=== PATIENT | female | born 1950 | race Caucasian/White ===

== ENCOUNTER → 2022-09-05 12:37 | Outpatient (CLI) | payer MEDICARE, BC, SELFPAY ==
--- NOTE | 2022-09-05 13:03 | DI.RAD.S_ITS ---
PROCEDURE: XR ANKLE LT MIN 3V INDICATIONS: Left ankle TECHNIQUE: 3 views of the ankle were acquired. COMPARISON: None. FINDINGS: Bones: No fractures or dislocations. Ankle mortise is normally aligned. Osteoarthritic changes are noted throughout midfoot and hindfoot joints. No suspicious bony lesions. Well-defined plantar and dorsal calcaneal enthesophytes are seen. Soft tissues: No tibiotalar joint effusion. Achilles tendon appears normal. IMPRESSION: Moderate midfoot and hindfoot joint osteoarthritis. No acute fracture or dislocation. Ankle mortise is congruent. Calcaneal enthesophytes. Dictated by: Dwayne Mckee M.D. on 09/05/2022 at 15:38 Approved by: Dwayne Mckee M.D. on 09/05/2022 at 15:38
== END ==
PROVIDERS: PCP Nurse Practitioner Family; Referring Provider Nurse Practitioner Family; Visit Provider Nurse Practitioner Family
DX: S99.912A Unspecified injury of left ankle, initial encounter (principal); M19.072 Primary osteoarthritis, left ankle and foot; M77.32 Calcaneal spur, left foot; X58.XXXA Exposure to other specified factors, initial encounter
CPT/HCPCS: 73610

== ENCOUNTER → 2022-10-26 15:08 | Outpatient (CLI) | payer MEDICARE, BC, SELFPAY ==
--- NOTE | 2022-10-26 15:11 | DI.RAD.S_ITS ---
PROCEDURE: XR CHEST 2V INDICATIONS: Unknown cause of wt loss TECHNIQUE: 2 views of the chest were acquired. COMPARISON: None. FINDINGS: Surgical changes and devices: None. Lungs and pleura: Lungs are clear. No pleural effusions or pneumothorax. Mediastinum: Mediastinal contours are normal. Heart size is normal. Bones and chest wall: No suspicious bony abnormalities. Decreased osseous mineralization. Degenerative changes of the thoracic spine. Soft tissues appear unremarkable. IMPRESSION: No acute cardiopulmonary process. Dictated by: Emerson Ricci M.D. on 10/26/2022 at 16:04 Approved by: Emerson Ricci M.D. on 10/26/2022 at 16:05
[2022-10-26 15:58] LABS: Hematocrit 37.5 % (36-46); Mean Corpuscular HGB Conc 34.6 % (30-36); Mean Corpuscular Hemoglobin 31.8 PG (26-34); Mean Corpuscular Volume 91.9 fL (80-100); Platelet Count 243 X10^3/uL (150-400); Red Blood Cell Count 4.08 X10^6/uL (4.0-5.2); Red Cell Distribution Width 13.2 % (11.6-14.8); White Blood Cell Count 7.5 X10^3/uL (4.5-11.0)
[2022-10-26 16:57] LABS: Alanine Aminotransferase 21 IU/L (<35); Albumin 4.2 g/dL (3.5-5.0); Albumin Globulin Ratio 1.6 (1.0-2.8); Alkaline Phosphatase 85 U/L (38-126); Aspartate Aminotransferase 31 IU/L (14-36); BUN Creatinine Ratio 29.7 (6-22); Bilirubin Total 0.4 mg/dL (0.2-1.3); Blood Urea Nitrogen 19 mg/dL (7-17); Calcium 9.1 mg/dL (8.4-10.2); Carbon Dioxide 30 mmol/L (22-32); Chloride 102 mmol/L (98-107); Estimated Glomerular Filt Rate > 60 mL/min (>60); Globulin 2.6 g/dL (1.7-4.1); Glucose 99 mg/dL (80-110); HEMOLYSIS < 15 (0-50); Lipase 147 U/L (23-300); Potassium 3.9 mmol/L (3.4-5.1); Sodium 137 mmol/L (137-145); Total Protein 6.8 g/dL (6.3-8.2)
== END ==
PROVIDERS: Referring Provider Physician Assistant; Visit Provider Physician Assistant
DX: R63.4 Abnormal weight loss (principal)
CPT/HCPCS: 36415; 71046; 80053; 83690; 85027

== ENCOUNTER → 2022-12-17 10:28 | Outpatient (CLI) | payer MEDICARE, BC, SELFPAY ==
[2022-12-17 11:49] LABS: TSH w/ Reflex to FT4 1.06 uIU/mL (0.47-4.68)
== END ==
PROVIDERS: PCP Family Medicine; Referring Provider Family Medicine; Visit Provider Family Medicine
DX: E03.9 Hypothyroidism, unspecified (principal); I10 Essential (primary) hypertension
CPT/HCPCS: 36415; 84443

== ENCOUNTER → 2022-12-25 | Outpatient (CLI) | payer MEDICARE, BC, SELFPAY ==
--- NOTE | 2022-12-25 15:25 | DI.MG.S_ITS ---
BILATERAL DIGITAL SCREENING MAMMOGRAM 3D/2D WITH CAD: 12/25/2022 CLINICAL: Routine screening. Comparison is made to exams dated: 04/27/2022 mammogram and 07/20/2020 mammogram - outside facility. Both breasts are extremely dense, which lowers the sensitivity of mammography (category d />75% glandular tissue). Current study was also evaluated with a Computer Aided Detection (CAD) system. There are benign diffuse calcifications in both breasts. No significant masses, calcifications, or other findings are seen in either breast. There has been no significant interval change. IMPRESSION: BENIGN There is no mammographic evidence of malignancy. A 1 year screening mammogram is recommended. Based on the Tyrer Cuzick model (a risk assessment model) the patient's lifetime risk is 10.8% and her 10 year risk is 7.5%. According to the ACR, ACS, and NCCN guidelines, an annual breast MRI exam along with mammogram is recommended if the patient's lifetime risk is 20% or greater. This exam was interpreted at Station ID: [id number]. NOTE: For mammograms, a report in lay terms will be sent to the patient. Approximately 15% of breast malignancies will not be visualized mammographically. In the management of a palpable breast mass, a negative mammogram must not discourage biopsy of a clinically suspicious lesion. Electronically Signed By: Jadiel pérez/oralia:01/09/2023 12:48:47 letter sent: Normal Exam ACR BI-RADS Category 2: Benign Finding(s) 3342F
--- NOTE | 2022-12-25 15:28 | DI.CT.S_ITS ---
PROCEDURE: CT CHEST WO CON INDICATIONS: 30 lb wt loss, chronic cough TECHNIQUE: Noncontrast 5 mm thick sections acquired from the pulmonary apices to the posterior costophrenic angles. 1 mm lung window, 5 mm thick coronal and sagittal and 7 mm axial MIP reformats were then acquired. For radiation dose reduction, the following was used: automated exposure control, adjustment of mA and/or kV according to patient size. COMPARISON: [facility], CR, XR CHEST 2V, 10/26/2022, 15:25. FINDINGS: Image quality: Excellent. Lungs and pleura: No acute air space opacities. No suspicious pulmonary nodules are seen. A few scattered pulmonary granulomas can be seen. No pleural effusions or pneumothorax. Central and peripheral airways are patent and normal in caliber. Mediastinum: Heart size is normal. No pericardial effusion. No mediastinal adenopathy by size criteria. Calcified mediastinal lymph nodes can be seen. Thoracic aorta and central pulmonary arteries are normal in size. Esophagus is normal in caliber. No hiatal hernia. Bones and chest wall: No suspicious bony lesions. No vertebral body compression fractures. Age-appropriate bony degenerative changes are seen. Accentuated thoracic kyphosis is seen. No axillary or supraclavicular adenopathy by size criteria. Thyroid gland demonstrates no significant noncontrast abnormality. Abdomen: Calcified granulomas can be seen within the liver and spleen. The visualized portions of the upper abdominal structures are otherwise unremarkable for imaging technique. IMPRESSION: Clear lungs, without findings of masses or suspicious nodules. Additional findings: Prior granulomatous exposure. Dictated by: Pedro Shen M.D. on 12/25/2022 at 16:59 Approved by: Pedro Shen M.D. on 12/25/2022 at 17:01
== END ==
PROVIDERS: PCP Family Medicine; Referring Provider Family Medicine; Visit Provider Family Medicine
DX: Z12.31 Encounter for screening mammogram for malignant neoplasm of breast (principal); R63.4 Abnormal weight loss; R05.3 Chronic cough
CPT/HCPCS: 71250; 77063; 77067

== ENCOUNTER → 2023-01-04 12:51 | Outpatient (CLI) | payer MEDICARE, BC, SELFPAY ==
--- NOTE | 2023-01-04 12:53 | DI.CT.S_ITS ---
PROCEDURE: CT CHEST ABD PEL W CON INDICATIONS: lower lucinda abd pain, unintended wt loss TECHNIQUE: After the administration of intravenous contrast, 5 mm thick sections acquired from the lung apices to the symphysis. 5 mm coronal and sagittal reformats were performed, with additional 7 mm MIP reformats through the lungs. For radiation dose reduction, the following was used: automated exposure control, adjustment of mA and/or kV according to patient size. COMPARISON: None. FINDINGS: Image quality: Excellent. CHEST: Lungs and pleura: No acute airspace opacities. Mild focal pulmonary and pleural scarring at the right lung apex. No pleural effusions or pneumothorax. Central and peripheral airways appear patent and normal in caliber. Mediastinum: Heart size is normal. No pericardial effusion. No mediastinal or hilar adenopathy by size criteria. Thoracic aorta and central pulmonary arteries are normal in size. Esophagus is normal in caliber. No hiatal hernia. Chest wall: No axillary or supraclavicular adenopathy by size criteria. Thyroid gland appears normal . ABDOMEN: Solid organs: Liver is normal in size and enhancement. Gallbladder appears normal . Biliary system is non dilated. Pancreas enhances normally. Spleen is normal in size and enhancement. Old splenic punctate granulomatous calcifications are incidentally noted. No adrenal nodules. Kidneys demonstrate normal size and enhancement, without hydronephrosis. Peritoneum and bowel: Small bowel loops demonstrate normal wall thickness and caliber. No free fluid or air. There is generalized colonic obstipation on the right and left. Nodes and vessels: No retroperitoneal or mesenteric adenopathy by size criteria. Aorta and inferior vena cava are normal in size. Miscellaneous: No ventral hernias. PELVIS: Genitourinary: Bladder wall thickness is normal. The uterus and ovaries are poorly visualized due to apposition with the adjacent unopacified small bowel loops and stool-filled colon. Miscellaneous: No inguinal hernias or adenopathy. Generalized colonic obstipation can be seen within the pelvis on the right and left and extending posteriorly into the dorsal 3rd of the sigmoid colon, but quality of visualization of the colonic wall and mucosal surfaces in this area is very limited. Bones: No suspicious bony lesions. No vertebral body compression fractures. IMPRESSION: 1. As discussed above there is generalized colonic obstipation that appears to extend into the posterior 3rd of the sigmoid colon. In this area a mass lesion could be present and for this reason unless recently performed sigmoidoscopy/colonoscopy may be warranted. 2. The study was ordered without oral contrast and in this patient there is apposition of multiple unopacified small bowel loops and stool-filled colon within the lower abdomen and pelvis. The uterus and ovaries are poorly visualized and for this reason follow-up by pelvic ultrasound likely is warranted. Dictated by: Job Yarbrough M.D. on 01/04/2023 at 14:33 Approved by: Job Yarbrough M.D. on 01/04/2023 at 14:37
[2023-01-04 13:31] LABS: Estimated Glomerular Filt Rate > 60 mL/min (>60)
== END ==
PROVIDERS: Radiology Diagnostic Radiology; PCP Family Medicine; Referring Provider Family Medicine; Visit Provider Family Medicine
DX: K59.00 Constipation, unspecified (principal); R19.5 Other fecal abnormalities; R63.4 Abnormal weight loss
CPT/HCPCS: 36415; 71260; 74177; 82565; Q9967

== ENCOUNTER → 2023-01-15 09:47 | Outpatient (CLI) | payer MEDICARE, BC, SELFPAY ==
--- NOTE | 2023-01-15 09:48 | DI.US.S_ITS ---
PROCEDURE: US PELVIC COMPLETE INDICATIONS: WEIGHT LOSS TECHNIQUE: Real-time scanning was performed of the pelvic organs, with image documentation. Additional endovaginal scanning was necessary due to incomplete visualization of the adnexal and endometrial structures by transabdominal scanning. COMPARISON: None. FINDINGS: Uterus: Uterus is anteverted and normal in size at 5.3 x 2.5 x 3.7 cm. The myometrium is heterogeneous. The endometrium measures 4 mm combined thickness. There is a right posterior intramural focus measuring 11 x 9 x 11 mm. A similar left posterior intramural focus is present measuring 10 x 10 x 11 mm and a left anterior intramural focus measuring 9 x 8 x 8 mm. Ovaries: The right ovary measures 2.0 x 0.9 x 1.4 cm, with a calculated ovarian volume of 1.4 cc. The left ovary measures 2.0 x 1.4 x 1.1 cm, with a calculated ovarian volume of 1.6 cc. The ovaries have a normal sonographic appearance. Less than 12 follicles can be seen in each ovary. No adnexal masses are seen. Other: No pathologic free abdominal or pelvic fluid. IMPRESSION: Multiple fibroids. We strive to produce accurate, complete, and clear reports of imaging services. To assist us in improving patient care, this report was composed using standard report templates and voice recognition software. Therefore, it may contain abnormal punctuation, insertions and/or omissions. Occasional wrong-word or sound-alike substitutions may occur. Though we review the report and make efforts to correct it, we do recommend that the report be read carefully in proper context to recognize any text inaccuracies. Dictated by: Magi Blackwood M.D. on 01/15/2023 at 13:33 Approved by: Magi Blackwood M.D. on 01/15/2023 at 13:37
== END ==
PROVIDERS: PCP Family Medicine; Referring Provider Family Medicine; Visit Provider Family Medicine
DX: R63.4 Abnormal weight loss (principal); D25.1 Intramural leiomyoma of uterus
CPT/HCPCS: 76830; 76856; 93975

== ENCOUNTER 2023-04-29 06:38 | Day surgery (SDC) | payer MEDICARE, BC, SELFPAY ==
--- NOTE | 2023-04-29 | PATH_ITS ---
[facility] Accession Number: [id number] No. of containers..01 Tissue . 01 Material submitted: . rectum - RECTAL POLYP . 01 Diagnosis: Colon, rectum, polyp biopsy: - Granulation tissue/inflammatory polyp - Negative for intestinal mucosa. - Negative for carcinoma. - See comment. -- Comment: Microscopic examination revealed granulation tissue with dense inflammatory cells (neutrophils, lymphocytes, and plasma cells), no epithelial cells are seen, no viral cytopathologic changes are seen. Immunohistochemical stains performed with appropriate controls and show: LYDIA keratin is negative, PAS, and AFB special stains are negative for fungal, and mycobacterial elements, respectively. Correlation with endoscopic findings and imaging is required for interpretation. Technical Note: The immunohistochemical stains reported were performed at [facility] ([address], [facility] [address]). They were developed and their performance characteristics determined by [employer]. They have not been cleared or approved by the U.S. Food and Drug Administration, although such approval is not required for analyte-specific reagents of this type. TXN 05/02/2023 1550 Local . 01 Electronically signed: . Marta Vaughan MD, Pathologist NPI- [id number] . 01 Gross description: . RECTAL POLYP: Received in formalin is 1 fragment(s) of hester, soft tissue measuring 0.3 x 0.2 x 0.2 cm submitted entirely in 1 cassette(s) /AAY 04/30/2023 0259 Local . 01 Pathologist provided ICD-10: Z12.11 . 01 CPT . 335459, X06314, 205505, 744220 Specimen Comment: A courtesy copy of this report has been sent to [phone] Performed at: [address] [facility] [address], [place], [place] [id number] MD Sea Castillo MD Phone: [phone]
[2023-04-29 07:04] VITALS: BP 105/82; PULSE 90; RESP 16; TEMP 36.6; O2SAT 98
[2023-04-29] MEDS: LACTATED RINGERS 1,000 ML 42 ML IV (07:18)
--- NOTE | 2023-04-29 07:27 | P.HP_ITS ---
History of Present Illness History of Present Illness Date Patient Seen: 04/29/23 Time Patient Seen: 07:27 Chief complaint: Colonoscopy Narrative: From interview it sounds as if she is never successfully had a colonoscopy due to issues with prep. She is here today for evaluation of unexplained weight loss. No family history for colon cancer. [facility] Medical History Benign essential HTN Hypothyroidism Social History Smoking Status: Never smoker Meds Home Medications and Allergies Home Medications Medication Instructions Recorded Confirmed Type rosuvastatin 10 mg tablet 10 mg PO ONCE PM 10/26/22 01/03/23 History amlodipine 2.5 mg tablet 2.5 mg PO DAILY 12/17/22 04/29/23 History levothyroxine 88 mcg tablet 88 mcg PO DAILY 12/17/22 01/03/23 History Allergies Allergy/AdvReac Type Severity Reaction Status Date / Time Penicillins AdvReac Unknown Verified 04/29/23 07:00 Review of Systems Review of Systems ROS: Yes All systems reviewed with the patient and are negative except as otherwise documented Exam Vital Signs (past 8 hours): - 04/29/23 07:04 Temperature 98 F Pulse Rate 90 Respiratory Rate 16 Blood Pressure 105/82 Pulse Oximetry 98 Oxygen Delivery Method Room Air Oxygen Delivery Method Room Air Const General: cooperative and healthy appearing Nutritional Appearance: thin Orientation: alert, awake and oriented x3 HENMT Head: normocephalic and atraumatic Eyes Sclera: sclerae normal Neck Neck: trachea midline Resp Effort & Inspection: normal respiratory effort and able to speak in complete sentences Cardio Rate: regular rate Rhythm: regular rhythm GI Palpation: soft and No tender Skin General: atrophy Neuro General: patient alert, patient awake and patient oriented x3 Speech: speech normal Psych Mental Status: mental status grossly normal Affect: normal affect Judgment: judgment good Assessment & Plan Assessment & Plan narrative: Colon cancer screening, unexplained weight loss Plan colonoscopy with anesthesia. There was a possibility that her prep is incomplete. We discussed doing a CT scan of abdomen to prevent further delay diagnosis and determining from there whether she needs a different style of prep and a repeat attempt of colonoscopy. Time Spent With Patient Time with patient: less than 30 minutes
--- NOTE | 2023-04-29 08:26 | PM.OP.COLON ---
Operative Date/Time/Diagnoses Date of procedure: 04/29/23 Time of procedure: 08:26 Pre-op diagnosis: Colon cancer screening, unexplained weight loss Post-op diagnosis: same Procedure & Clinicians Study performed: Colonoscopy with cold snare polypectomy Same procedure as scheduled: Yes Indications: Colon cancer screening, unexplained weight loss Surgeon: Maia Martin Procedure Notes Procedure in detail: Preop diagnosis: Unexplained weight loss, colon cancer screening Postop diagnosis: Same Operative procedure: Colonoscopy with cold snare polypectomy Surgeon: Gloria Martin MD Anesthetic: Propofol Findings: I believe there to be a stricture in the sigmoid colon greater than an estimated 4 cm, benign in appearance. And a 3 mm polyp in the rectosigmoid region. Procedure: Patient placed in a lateral position. Rectal exam performed showing decreased tone no masses. Colonoscope inserted into the rectum and advanced to ileocecal valve with significant difficulty passing through the sigmoid region due to what I believe was a stricture. Insufflation and extraction of the scope including retroflex in the cecum and the rectum had the above findings. Impression: Suspicion of a benign sigmoid stricture. Grossly appearing adenomatous polyp 3 mm taken with cold snare in the rectum. Mild diverticulosis of the sigmoid, small in nature Plan: Would like to go on to get a CT scan with preferably rectal contrast. Recommendations for screening colonoscopy will be 5 years Findings: divertiulosis, polyp(s) and stricture Specimen(s): other Complications: none Post-procedure Recommendations: Colonoscopy in 5 years Follow up: as needed Disposition: PACU
[2023-04-29 08:30] VITALS: BP 93/57; PULSE 67; RESP 16; TEMP 36.8; O2SAT 98
--- NOTE | 2023-04-29 08:30 | DI.CT.S_ITS ---
PROCEDURE: CT ABDOMEN PELVIS W CON INDICATIONS: colonic stricture vs pelvic mass TECHNIQUE: After the administration of intravenous contrast, axial sections acquired from the lung bases to the pubic symphysis. Coronal and sagittal reformats were performed. For radiation dose reduction, the following was used: automated exposure control, adjustment of mA and/or kV according to patient size. COMPARISON: None. FINDINGS: Image quality: Diagnostic. Lower Chest: No significant findings. ABDOMEN: Liver: No solid mass. Gallbladder: No radiopaque gallstones or wall thickening. Biliary ducts: No biliary dilation. Pancreas: No ductal dilation. Spleen: Size is within normal limits. Calcified granuloma. Adrenal Glands: No adrenal nodules. Kidneys and Ureters: Mild right-sided hydronephrosis and hydroureter. Stomach and Bowel: 6.5 centimeter segment of sigmoid colonic wall thickening. The proximal sigmoid colonic has diverticula, while this segment is not. No pericolonic fat stranding. No rectal contrast passed through this region. Peritoneum: No abnormal intraperitoneal fluid. No free air. Ventral Wall: No hernia. Abdominal Nodes: No retroperitoneal or mesenteric adenopathy by size criteria. Vessels: Aorta and inferior vena cava are normal in size. PELVIS: Pelvic Organs: Unremarkable. Bladder: Unremarkable. Pelvic Nodes: No enlarged lymph nodes. Miscellaneous: No inguinal hernias are seen. Bones: No aggressive osseous abnormality. IMPRESSION: 6.5 centimeter segment of circumferential wall thickening of the sigmoid colon, which does not allow for passage of rectal contrast. The proximal sigmoid colon demonstrates diverticulosis, with this segment does not contain diverticula. No adjacent adenopathy. Differential favors malignancy over colitis or stricture. Tissue sampling should be considered. No evidence of metastatic disease. Mild right-sided hydronephrosis, with obliteration of the distal ureter within the pelvis. Findings could be due to mass effect. Correlate with creatinine to exclude decreasing renal function. Consider urology if abnormal. Dictated by: Ady Fortune M.D. on 04/29/2023 at 12:38 Approved by: Ady Fortune M.D. on 04/29/2023 at 12:46
[2023-04-29 08:45] VITALS: BP 142/77; PULSE 68; RESP 16; TEMP 36.8; O2SAT 98
[2023-04-29 08:50] VITALS: BP 135/75; PULSE 75; RESP 16; TEMP 36.8; O2SAT 98
[2023-04-29 09:14] LABS: Estimated Glomerular Filt Rate > 60 mL/min (>60)
== END 2023-04-29 10:33 | disposition home or self-care (01) ==
PROVIDERS: PCP Family Medicine; Referring Provider Surgery; Visit Provider Surgery
PROC: 0DJD8ZZ Inspection of Lower Intestinal Tract, Via Natural or Artificial Opening Endoscopic (ICD-10-PCS; CPT 45378; principal; 2023-04-29 07:45)
DX: R63.4 Abnormal weight loss (principal); K57.30 Diverticulosis of large intestine without perforation or abscess without bleeding; K51.40 Inflammatory polyps of colon without complications
CPT/HCPCS: 45385; 74177; 82565; J2704; Q9967

== ENCOUNTER 2023-05-01 13:37 | Emergency (ER) | payer MEDICARE, BC, SELFPAY ==
[2023-05-01] VITALS (10 sets, daily range): BP systolic 129–169; BP diastolic 63–80; PULSE 66–82; RESP 15–30; TEMP 36.3; O2SAT 97–100; BMI 17.8
--- NOTE | 2023-05-01 13:44 | DI.RAD.S_ITS ---
PROCEDURE: XR CHEST 1V INDICATIONS: chest pain TECHNIQUE: One view of the chest was acquired. COMPARISON: [facility], CR, XR CHEST 2V, 10/26/2022, 15:25. FINDINGS: Surgical changes and devices: None. Lungs and pleura: Lungs are clear. No pleural effusions or pneumothorax. Mediastinum: Mediastinal contours appear normal. Heart size is mildly prominent. Bones and chest wall: No suspicious bony lesions. Overlying soft tissues appear unremarkable. IMPRESSION: No acute pulmonary process. Dictated by: Magi Blackwood M.D. on 05/01/2023 at 14:08 Approved by: Magi Blackwood M.D. on 05/01/2023 at 14:08
[2023-05-01 14:09] LABS: Add Manual Diff / Slide Review NO; Basophils Absolute Auto 100 /uL (0-100); Basophils Percent Auto 1.2 % (0-2); Eosinophils Absolute Auto 100 /uL (0-450); Eosinophils Percent Auto 1.3 % (2-4); Hematocrit 38.9 % (36-46); Hemoglobin 13.2 g/dL (12.0-16.0); Lymphocytes Absolute Auto 2800 /uL (1100-4500); Lymphocytes Percent Auto 38.3 % (25-40); Mean Corpuscular HGB Conc 33.8 % (30-36); Mean Corpuscular Hemoglobin 30.8 PG (26-34); Mean Corpuscular Volume 91.2 fL (80-100); Monocytes Absolute Auto 800 /uL (0-900); Monocytes Percent Auto 10.6 % (3-14); Neutrophils Absolute Auto 3600 /uL (1500-7000); Neutrophils Percent Auto 48.6 % (50-75); Platelet Count 283 X10^3/uL (150-400); Red Blood Cell Count 4.26 X10^6/uL (4.0-5.2); Red Cell Distribution Width 12.4 % (11.6-14.8); White Blood Cell Count 7.4 X10^3/uL (4.5-11.0)
[2023-05-01 14:23] LABS: Prothrombin Time 10.9 SECONDS (9.4-12.5)
[2023-05-01 14:25] LABS: PTT Partial Thromboplastin Tim 29 SECONDS (25.1-36.5)
[2023-05-01 14:26] LABS: Alanine Aminotransferase 22 IU/L (<35); Albumin 4.3 g/dL (3.5-5.0); Albumin Globulin Ratio 1.4 (1.0-2.8); Alkaline Phosphatase 84 U/L (38-126); Aspartate Aminotransferase 35 IU/L (14-36); BUN Creatinine Ratio 15.7 (6-22); Bilirubin Total 0.7 mg/dL (0.2-1.3); Blood Urea Nitrogen 11 mg/dL (7-17); Calcium 9.7 mg/dL (8.4-10.2); Carbon Dioxide 24 mmol/L (22-32); Chloride 101 mmol/L (98-107); Creatine Kinase 131 U/L (30-135); Estimated Glomerular Filt Rate > 60 mL/min (>60); Globulin 3.1 g/dL (1.7-4.1); Glucose 116 mg/dL (80-110); HEMOLYSIS < 15 (0-50); Lipase 121 U/L (23-300); Magnesium 1.8 mg/dL (1.6-2.3); Potassium 3.1 mmol/L (3.4-5.1); Sodium 137 mmol/L (137-145); Total Protein 7.4 g/dL (6.3-8.2)
[2023-05-01 14:37] LABS: Troponin I < 0.012 ng/mL (0.01-0.034)
--- NOTE | 2023-05-01 14:54 | ED.DIZZY ---
HPI - Dizziness General Chief Complaint: Dizziness Stated Complaint: vomiting, dizzy, [place], all out of no where Time Seen by Provider: 05/01/23 13:59 Source: patient Mode of arrival: Wheelchair History of Present Illness HPI Narrative: 72-year-old female with history of hypertension, hypothyroidism presents by private vehicle for an episode of vomiting, lightheadedness and a heavy sensation that began just prior to arrival. Patient states that she was walking out of a store when symptoms began. She states that she currently feels that she is very heavy and fatigued, no longer nauseous or vomiting. Reports colonoscopy earlier this week, and is concerned that she may be dehydrated. Related Data Home Medications Medication Instructions Recorded Confirmed rosuvastatin 10 mg tablet 10 mg PO ONCE PM 10/26/22 05/02/23 amlodipine 2.5 mg tablet 2.5 mg PO DAILY 12/17/22 05/02/23 levothyroxine 88 mcg tablet 88 mcg PO DAILY 12/17/22 05/02/23 Allergies Allergy/AdvReac Type Severity Reaction Status Date / Time Penicillins AdvReac Unknown Verified 05/02/23 15:56 Review of Systems Review of Systems Narrative: Negative except as noted above Patient History Medical History Benign essential HTN Hypothyroidism Social History Smoking Status: Never smoker Smoking Status: Never smoker alcohol intake frequency: holidays/special occasions only Substance Use Type: marijuana Exam Initial Vital Signs Initial Vital Signs: Vital Signs Temperature 97.4 F L 05/01/23 13:40 Pulse Rate 74 05/01/23 13:40 Respiratory Rate 18 05/01/23 13:40 Blood Pressure 155/70 H 05/01/23 13:40 Pulse Oximetry 100 05/01/23 13:40 Oxygen Delivery Method Room Air 05/01/23 13:40 ?Const: Awake, alert, no acute distress, nontoxic appearing Cardiac: regular rate, regular rhythm RESP: unlabored, clear bilaterally, no wheezing GI: Atraumatic, soft, nontender, nondistended, no rebound, no guarding MSK: Atraumatic, full range of motion, pulses equal Skin: Warm, Dry, intact, no rashes Neuro: AO x3, CN II-XII grossly intact, moves all extremities Psych: affect normal, mood normal, not suicidal, not homicidal Course Orders Ordered: Discontinued Medications Sodium Chloride (Normal Saline 0.9%) 1,000 mls @ 1,000 mls/hr IV BOLUS ONE Stop: 05/01/23 15:53 Last Infusion: 05/01/23 17:38 Dose: Infused Documented By: Admin: 05/01/23 15:13 Dose: 1,000 mls/hr Documented By: KARLI Ondansetron HCl (Ondansetron 4 Mg/2 Ml Inj) 4 mg IV NOW ONE Stop: 05/01/23 14:59 Last Admin: 05/01/23 17:41 Dose: Not Given Documented By: KARLI Vital Signs Vital signs: Vital Signs - 8 hr 05/01/23 13:40 05/01/23 14:06 05/01/23 14:07 Temperature 97.4 F L Pulse Rate 74 82 Respiratory Rate 18 Blood Pressure 155/70 H 137/63 Pulse Oximetry 100 97 Oxygen Delivery Method Room Air 05/01/23 14:30 05/01/23 14:30 Temperature Pulse Rate 69 Respiratory Rate 18 Blood Pressure 129/64 Pulse Oximetry 100 Oxygen Delivery Method MDM - Dizziness Differential Diagnosis Differential diagnosis: Likely adverse reaction to drug, orthostatic hypotension and other (anemia) Lab Data 05/01/23 14:00 05/01/23 14:00 Labs: Lab Results 05/01/23 Range/Units 14:00 WBC 7.4 (4.5-11.0) X10^3/uL RBC 4.26 (4.0-5.2) X10^6/uL Hgb 13.2 (12.0-16.0) g/dL Hct 38.9 (36-46) % MCV 91.2 (80-100) fL MCH 30.8 (26-34) PG MCHC 33.8 (30-36) % RDW 12.4 (11.6-14.8) % Plt Count 283 (150-400) X10^3/uL Neut % (Auto) 48.6 L (50-75) % Lymph % (Auto) 38.3 (25-40) % [place] % (Auto) 10.6 (3-14) % Eos % (Auto) 1.3 L (2-4) % Baso % (Auto) 1.2 (0-2) % Neut # (Auto) 3600 (9175-1700) /uL Lymph # (Auto) 2800 (1506-0301) /uL [place] # (Auto) 800 (0-900) /uL Eos # (Auto) 100 (0-450) /uL Baso # (Auto) 100 (0-100) /uL PT 10.9 (9.4-12.5) SECONDS INR 1.0 (0.9-1.3) APTT 29 (25.1-36.5) SECONDS Sodium 137 (137-145) mmol/L Potassium 3.1 L (3.4-5.1) mmol/L Chloride 101 (98-107) mmol/L Carbon Dioxide 24 (22-32) mmol/L BUN 11 (7-17) mg/dL Creatinine 0.70 (0.52-1.04) mg/dL Estimated GFR > 60 (>60) mL/min BUN/Creatinine Ratio 15.7 (6-22) Glucose 116 H (80-110) mg/dL Calcium 9.7 (8.4-10.2) mg/dL Magnesium 1.8 (1.6-2.3) mg/dL Total Bilirubin 0.7 (0.2-1.3) mg/dL AST 35 (14-36) IU/L ALT 22 (<35) IU/L Alkaline Phosphatase 84 (38-126) U/L Total Creatine Kinase 131 (30-135) U/L Troponin I < 0.012 (0.01-0.034) ng/mL Total Protein 7.4 (6.3-8.2) g/dL Albumin 4.3 (3.5-5.0) g/dL Globulin 3.1 (1.7-4.1) g/dL Albumin/Globulin Ratio 1.4 (1.0-2.8) Lipase 121 (23-300) U/L Urine Dip Bedside Urine Glucose Negative Bedside Urine Bilirubin - Negative Bedside Urine Ketone - Negative Urine Specific [place] 1.010 Bedside Urine Occult Blood - Negative Bedside Urine pH 8.5 Bedside Urine Protein - Negative Bedside Urine Urobilinogen - Negative Bedside Urine Nitrite - Negative Bedside Urine Leukocytes - Negative Esterase ECG Data Interpretation: normal sinus rhythm, normal MT intervals, no ST-T wave changes, no STEMI MDM Narrative Medical decision making narrative: Nonspecific symptoms that began while walking out of the store. Patient states she feels overall ?heavy?, with no other specific symptoms. NIH is 0, no focal deficits. Laboratory work is reviewed, electrolytes are within normal limits, no leukocytosis, urine dip is negative for leukocyte esterase or WBCs present. CT brain negative for acute findings, chest x-ray shows no acute cardiopulmonary process. Patient reports feeling improved after receiving IV fluids, she was subsequently ambulatory throughout the [place] without any distress or difficulty. Patient and advised of all lab and imaging findings at bedside, they will continue to hydrate at home and will follow up with the patient's primary care physician. Discharge Plan Departure Patient Disposition: Home Clinical Impression: Fatigue Instructions: DI for Dizziness-Nonvertigo Activity Restrictions/Additional Instructions: Make sure to drink plenty of fluids. Continue all of your medications as previously prescribed. Follow up with your primary care physician Prescriptions: No Action rosuvastatin 10 mg tablet 10 mg PO ONCE PM amlodipine 2.5 mg tablet 2.5 mg PO DAILY levothyroxine 88 mcg tablet 88 mcg PO DAILY Referrals: Shelton Clark DO [Primary Care Provider] - Stand Alone Forms: Patient Portal/API
--- NOTE | 2023-05-01 14:58 | DI.CT.S_ITS ---
PROCEDURE: CT HEAD/BRAIN WO CON INDICATIONS: VOMITING/DIZZY X TODAY TECHNIQUE: Noncontrast 4.5 mm thick angled axial sections acquired from the foramen magnum to the vertex, with coronal and sagittal reformats. For radiation dose reduction, the following was used: automated exposure control, adjustment of mA and/or kV according to patient size. COMPARISON: None. FINDINGS: Image quality: Diagnostic. CSF spaces: Basal cisterns are patent. No extra-axial fluid collections. The ventricles are symmetric in size and shape. Brain: No intracranial bleeds or masses. There is cerebral volume loss for age, with resultant ventricular and sulcal prominence. There are periventricular and deep white matter chronic small vessel ischemic changes. There is intracranial internal carotid artery atherosclerosis. Skull and face: Calvarium and visualized facial bones appear intact, without suspicious lesions. Sinuses: Visualized sinuses and mastoids are clear. IMPRESSION: 1. No acute intracranial process. 2. Moderate atrophy and chronic microvascular ischemic changes. Dictated by: Magi Blackwood M.D. on 05/01/2023 at 15:53 Approved by: Magi Blackwood M.D. on 05/01/2023 at 15:53
[2023-05-01] MEDS: SODIUM CHLORIDE 0.9% 1,000 ML 1000 ML IV (15:13)
== END 2023-05-01 17:40 | disposition home or self-care (01) ==
PROVIDERS: Emergency Provider Emergency Medicine; PCP Family Medicine
DX: R53.83 Other fatigue (principal); R42 Dizziness and giddiness; R07.9 Chest pain, unspecified
CPT/HCPCS: 36415; 70450; 71045; 80053; 81003; 82550; 83690; 83735; 84484; 85025; 85610; 85730; 93005; 96360; 96361; 99284

== ENCOUNTER 2023-05-22 07:18 | Inpatient (IN) | payer MEDICARE, BC, SELFPAY ==
[2023-05-10 07:56] VITALS: BMI 17.8
[2023-05-22] VITALS (14 sets, daily range): BP systolic 118–170; BP diastolic 69–94; PULSE 74–95; RESP 12–18; TEMP 36.4–37.3; O2SAT 96–100; BMI 17.2
--- NOTE | 2023-05-22 | PATH_ITS ---
[facility] Accession Number: [id number] No. of containers..03 Tissue . 01 Material submitted: . PART A: colon - ANASTOMOTIC DONUTS PART B: rectum - RECTUM,STITCH AT PROXIMAL END PART C: appendix - APPENDIX . 01 Diagnosis: A. ANASTOMOTIC DONUTS: Colon wall segments consistent with anastomotic donuts. Negative for active inflammation, dysplasia, and malignancy. . B. RECTUM, SEGMENTAL RESECTION: Diverticulitis with pericolorectal abscess. Diverticulosis. Serosal adhesions. Negative for dysplasia and malignancy. . C. APPENDIX, APPENDECTOMY: Appendix with serositis and serosal adhesions involving the appendix tip. Negative for dysplasia and malignancy. [facility] 05/29/2023 1552 Local . 01 Electronically signed: . Deborah Dash MD, Pathologist NPI- [id number] . 01 Gross description: . A. Received in formalin, labeled with the patient's name, , and anastomotic donuts, and consists of two circular fragments of colon. The first has several blue sutures with no designations per the requisition. The fragment measures 2.2 cm in length by 1.5 cm in diameter, and is inked blue. The second fragment has ange, measures 1.5 cm in length by 2.1 cm in diameter, and is inked green. Sectioning reveals hester, velvety mucosa with no lesions, and san that average 0.3 cm thick. Dat Instructor sections are submitted in cassette A1. B. Received in formalin, labeled with the patient's name, , and rectum, stitch at proximal end, and consists of an oriented segment of colon measuring 14.0 cm in length by 3.3 cm in average diameter. A suture is located at one staple line designating proximal per the requisition. The proximal margin is inked blue. The distal margin is inked black. The roughened fat consistent with radial margin is inked green. The serosa is hester to brown and ragged with minimal attached adipose and no rectal envelope grossly identified. A full thickness defect is identified with visible mucosa measuring 1.7 cm in greatest dimension, and the serosa adjacent to the defect is inked red. The lumen is narrow but probe patent, and the mucosa is hester to erythematous with normal appearing folds. Erythema is identified adjacent to the full thickness defect. The remaining mucosa is unremarkable with normal appearing folds and no lesions identified. The san average 0.8 cm thick with multiple diverticula measuring up to 1.0 cm in depth. Palpation reveals 12 hester lymph node candidates ranging from 0.2 to 0.7 cm in greatest dimension. Dat Instructor sections are submitted as follows: B1: Rep margins en face. B2: Area of defect. B3-B4: Diverticula. B5: Additional full thickness sections. B6: Four intact lymph node candidates. B7: Five intact lymph node candidates. B8: Three intact lymph node candidates. C. Received in formalin, labeled with the patient's name, , and appendix, and consists of a hester vermiform appendix measuring 5.3 cm in length by 0.7 cm in diameter with hester serosa and adherent material consistent with exudate. The margin is inked blue, and sectioning reveals a patent pinpoint lumen and hester san that average 0.3 cm thick with no perforation or lesions identified. Dat Instructor sections to include the margin, one-half of the bisected distal tip, and cross section are submitted in cassette C1. Second half of appendix tip is submitted in cassette C2. ([id number]) ([id number]) /MRV 05/29/2023 1552 Local . 01 Pathologist provided ICD-10: K57.90 . 01 CPT . 394679, [id number], [id number] Specimen Comment: A courtesy copy of this report has been sent to [phone] Performed at: [address] [address], [place], [place] [id number] MD Sea Castillo MD Phone: [phone]
[2023-05-22] MEDS: LACTATED RINGERS 1,000 ML 21 ML IV (07:50)
--- NOTE | 2023-05-22 09:13 | PM.PREOP ---
Pre-operative Note Interval Note History & Physical reviewed/Exam performed by Physician: Yes Changes to H&P: No
[2023-05-22] MEDS: levoFLOXacin 500 MG/100 ML PIGGYBACK 100 MG IV (10:11)
--- NOTE | 2023-05-22 10:37 | SUR.OPER ---
Supine on pink padded OR bed, head on pillow, arms padded and tucked at sides, legs uncrossed, safety belt at thigh, tape over blanket over lower legs .
[2023-05-22] MEDS: BUPIVACAINE 0.25% (PF) VIAL 30 ML INJ (11:01)
[2023-05-22] MEDS: BUPIVACAINE LIPOSOME 266 MG/20 ML VIAL INJ (12:18)
[2023-05-22] MEDS: HYDROMORPHONE 1 MG INJ IV (13:15)
[2023-05-22] MEDS: LACTATED RINGERS 1,000 ML 40 ML IV (13:36)
[2023-05-22] MEDS: ONDANSETRON 4 MG/2 ML INJ IV (13:46)
--- NOTE | 2023-05-22 14:05 | P.OP_ITS ---
Operative Date/Time/Diagnoses Date of procedure: 05/22/23 Time of procedure: 14:05 Pre-op diagnosis: Colonic stricture Post-op diagnosis: same Procedure & Clinicians Procedure: Low anterior resection Open appendectomy Same procedure as scheduled: Yes Surgeon: Kailash Robertson [employer] Maintenance Supervisor: Ashish Bhatti Anesthesia Type: General Operative Notes Findings: Proximal rectum adherent to the left ovary, uterus and appendix. Specimen(s): other (rectum, stitch metzger proximal) Estimated Blood Loss (mL): 50 Procedure in detail: Patient was brought to the operating room placed supine the table. Bilateral lower extremity compression devices were applied. She received levofloxacin prior to skin incision. General anesthesia was induced she was intubated with an endotracheal tube. Carrillo catheter was then sterilely placed in she was prepped and draped in sterile fashion. She was positioned into lithotomy and appropriately padded. Time-out was performed. A infraumbilical incision was made the subcutaneous tissue divided fascia grasped elevated sharply incised abdomen was entered atraumatically. Pneumoperitoneum was established. General inspection of the abdomen was made there was no sign of injury upon entry and no significant intra abdominal pathology with the exception of her diverticular disease within the pelvis. We began by mobilizing the sigmoid colon in a lateral to medial fashion. The white line of Toldt was opened towards the splenic flexure. She had a extremely redundant sigmoid and rectum. The left ureter was identified by its vermiculate fashion as it crossed over the iliac vessels and was kept posterior out of harm's way. Attention was then focused to the pelvis and we encountered dense abdominal adhesions between the uterus and proximal rectum the left ovary and proximal rectum and the appendix to the upper rectum. We made as much progress as we could safely laparoscopically primarily with blunt dissection using the suction polisher hand and sharp Angel. However due to the density of the adhesions no further safe forward progress could be made laparoscopically. Lower midline incision was made in the abdomen was entered self-retaining retractor was placed. Window within the mesentery near the rectosigmoid junction was made and the colon was divided using a firing of the contour stapler. At this point the distal sigmoid/upper rectum was used as a handle and the mesentery was divided close to the bowel wall with the ureter kept posterior out of harm's way. The upper rectal stalks were divided using th e LigaSure. Using of finger fracture and sharp dissection with the Angel we developed the plane between the proximal rectum the uterus and the left ovary. It appears that she had a perforated diverticulum which scarred during its healing causing a stricture of the proximal rectum or perhaps a left tubo- ovarian abscess. Finally the appendix was found to be adherent to the upper rectum and the tip of the appendix was extremely inflamed. Given the findings of the appendix and the adhesions that I presume she will form within the pelvis we felt it would be prudent at this point to remove the appendix. Mesoappendix was divided with the LigaSure and then the appendix was amputated flush at the base of the cecum using the contour stapler. The rectum was examined then we found the point of narrowing and we found healthy pliable tissue distal to this point. Window within the mesentery was made and the rectum was divided above the level of the peritoneal reflection using an additional load of the contour stapler. At this point the anal canal was sized and we elected to use 29 mm EEA stapler, canal length of approximately 12 cm. Pursestring within the proximal colon was fashioned after resection of the staple line. The anvil was secured within the colon wall. Then under direct visualization the point of the stapler was deployed through the rectum in close proximity to the staple line. The anvil and staple were then mated under direct visualization and a end to end anastomosis was formed. The anastomosis was submerged and a colonoscope was inserted into the anal canal. The anastomosis was visualized was widely patent and hemostatic there was no evidence of leak with insufflation. The abdomen was then copiously lavaged with several L of sterile saline. The lavaged returned clear. Change of gown and gloves was made and then the abdomen was closed. The fascia was closed with a number 1 PDS in running fashion. The subcutaneous tissue was reapproximated with 3-0 Vicryl and the skin closed with 4-0 Monocryl followed by the application of Dermabond. Patient tolerated the procedure well was extubated and transferred to recovery in stable condition. The assistance of Dr. Bhatti was necessary for his assistance with retraction as well as formation of the anastomosis. Complications: none Post-operative Condition: stable Disposition: Acute Care
[2023-05-22] MEDS: DEXTROSE 5%-0.45% NS 1,000 ML 100 ML IV (14:28)
[2023-05-22] MEDS: IBUPROFEN 600 MG TABLET PO (21:10)
[2023-05-22] MEDS: ACETAMINOPHEN 325 MG TABLET 650 MG PO (21:10)
[2023-05-22] MEDS: ATORVASTATIN 20 MG TABLET PO (21:11)
[2023-05-23] VITALS (8 sets, daily range): BP systolic 137–168; BP diastolic 77–85; PULSE 77–87; RESP 16–20; TEMP 36.5–36.8; O2SAT 97–100
[2023-05-23] MEDS: DEXTROSE 5%-0.45% NS 1,000 ML 100 ML IV (00:07)
[2023-05-23 04:26] LABS: Add Manual Diff / Slide Review NO; Basophils Absolute Auto 0 /uL (0-100); Basophils Percent Auto 0.3 % (0-2); Eosinophils Absolute Auto 0 /uL (0-450); Hematocrit 34.7 % (36-46); Hemoglobin 11.9 g/dL (12.0-16.0); Lymphocytes Absolute Auto 1400 /uL (1100-4500); Lymphocytes Percent Auto 11.5 % (25-40); Mean Corpuscular HGB Conc 34.3 % (30-36); Mean Corpuscular Hemoglobin 30.4 PG (26-34); Mean Corpuscular Volume 88.6 fL (80-100); Monocytes Absolute Auto 1500 /uL (0-900); Monocytes Percent Auto 12.1 % (3-14); Neutrophils Absolute Auto 9200 /uL (1500-7000); Neutrophils Percent Auto 76.1 % (50-75); Platelet Count 223 X10^3/uL (150-400); Red Blood Cell Count 3.91 X10^6/uL (4.0-5.2); Red Cell Distribution Width 12.9 % (11.6-14.8)
[2023-05-23 04:41] LABS: BUN Creatinine Ratio 7.4 (6-22); Blood Urea Nitrogen 5 mg/dL (7-17); Calcium 8.7 mg/dL (8.4-10.2); Carbon Dioxide 25 mmol/L (22-32); Chloride 105 mmol/L (98-107); Estimated Glomerular Filt Rate > 60 mL/min (>60); Glucose 140 mg/dL (80-110); HEMOLYSIS < 15 (0-50); Potassium 2.9 mmol/L (3.4-5.1); Sodium 137 mmol/L (137-145)
--- NOTE | 2023-05-23 08:50 | P.PN_ITS ---
Subjective Subjective Date Patient Seen: 05/23/23 Time Patient Seen: 08:51 Interval history: Postoperative day 1 status post low anterior resection -tolerating clear liquids +bowel movement Carrillo catheter removed urinating appropriately Minimal pain controlled with Tylenol Ambulatory Exam Vital Signs (past 8 hours): - 05/23/23 00:52 05/23/23 01:37 05/23/23 04:00 Temperature 98.1 F 97.7 F Pulse Rate 87 77 Respiratory Rate 17 20 Blood Pressure 168/80 H 157/77 H Pulse Oximetry 98 97 100 Oxygen Delivery Method Room Air Oxygen Flow Rate 0 0 0 05/23/23 06:00 Temperature Pulse Rate Respiratory Rate Blood Pressure Pulse Oximetry 97 Oxygen Delivery Method Room Air Oxygen Flow Rate 0 Oxygen Delivery Method Room Air Oxygen Flow Rate 0 Narrative Exam Narrative: General adult woman alert oriented no acute distress Chest nonlabored respiration Abdomen soft appropriately tender to palpation. Objective Labs 05/23/23 04:04 05/23/23 04:04 Labs: Laboratory Results - last 24 hr 05/23/23 04:04 WBC 12.0 H RBC 3.91 L Hgb 11.9 L Hct 34.7 L MCV 88.6 MCH 30.4 MCHC 34.3 RDW 12.9 Plt Count 223 Neut % (Auto) 76.1 H Lymph % (Auto) 11.5 L [place] % (Auto) 12.1 Eos % (Auto) 0.0 L Baso % (Auto) 0.3 Neut # (Auto) 9200 H Lymph # (Auto) 1400 [place] # (Auto) 1500 H Eos # (Auto) 0 Baso # (Auto) 0 Sodium 137 Potassium 2.9 L Chloride 105 Carbon Dioxide 25 BUN 5 L Creatinine 0.68 Estimated GFR > 60 BUN/Creatinine Ratio 7.4 Glucose 140 H Calcium 8.7 PFSH Medical History (Updated 05/16/23 @ 00:00 by ) Dementia (~2021) HLD (hyperlipidemia) Skin cancer Anxiety Diverticulosis Sinus drainage History of pneumonia Asthma Benign essential HTN Hypothyroidism Surgical History (Updated 05/10/23 @ 08:19 by Josy Patterson RN) Hx of colonoscopy (04/29/23) Social History household members: spouse Smoking Status: Never smoker alcohol intake: current Assessment & Plan Post-op Postoperative Procedures: Procedures Operation Date: 05/22/23 09:15 Actual Procedure Side Surgeon p Laparoscopic convert to open Low Anterior Colon Resection and Appendectomy Kailash Robertson MD Postoperative status narrative: 72-year-old woman postoperative day 1 status post laparoscopic assisted low anterior resection and appendectomy for diverticular stricture. She is doing quite well for postoperative day 1. She has return of bowel function minimal pain and is ambulatory. -advance to regular diet -DC IV fluids -PT/OT eval anticipate minimal needs -SCDs and prophylactic Lovenox -anticipate discharge home tomorrow May 24
[2023-05-23] MEDS: POTASSIUM CHLORIDE 20 MEQ TAB 40 MEQ PO ×2 (09:03→13:33)
[2023-05-23] MEDS: DONEPEZIL 5 MG TABLET 10 MG PO (09:03)
[2023-05-23] MEDS: LEVOTHYROXINE 88 MCG TABLET PO (09:04)
[2023-05-23] MEDS: ACETAMINOPHEN 325 MG TABLET 650 MG PO (09:04)
[2023-05-23] MEDS: IBUPROFEN 600 MG TABLET PO (09:04)
[2023-05-23] MEDS: AMLODIPINE 5 MG TABLET 2.5 MG PO (09:05)
[2023-05-23] MEDS: ENOXAPARIN 40 MG/0.4 ML SYRINGE SUBCUT (09:06)
--- NOTE | 2023-05-23 11:15 | PC.NURSE ---
Addendum entered by Windy Kirk R.N. 05/23/23 15:03: Patient has tolerated some solid foods but asked for some soup at lunch, which she ate about half. She has been ambulating in the halls and is resting now. Original Note: Patient has been heplocked and is sba when getting up to the bathroom or commode. She has two lapsites that are covered with a bandaides and a ml incision that is covered with an aquacel dressing. Patient also has an abdominal binder in place. Given tylenol and ibuprofen this morning for comfort and visiting with her sister and friends at this time.
--- NOTE | 2023-05-23 13:02 | OT.IPNOTE ---
Spoke to pt regarding OT needs and pt has all equipment needs for the bathroom and to assist. Pt already been up on her feet and moved independently with PT. Suggested use of LB dressing equipment and use of pillow/stuffed animal when coughing. Pt to go home when medically stable no charge.
--- NOTE | 2023-05-23 13:03 | PT.IIE ---
Current Diagnoses Other intestinal obstruction unspecified as to partial versus complete obstruction (05/22/23) Surgery Performed Operation Date: 05/22/23 09:15 Actual Procedures p Laparoscopic convert to open Low Anterior Colon Resection and Appendectomy - Kailash Robertson MD Surgical History (Last Updated 05/10/23 @ 08:19 by Josy Patterson RN) Hx of colonoscopy (04/29/23) Medical History (Last Updated 05/13/23 @ 11:06 by Shelton Clark DO) Anxiety Asthma Benign essential HTN Dementia (~2021) Diverticulosis History of pneumonia HLD (hyperlipidemia) Hypothyroidism Sinus drainage Skin cancer Physical Therapy Inpatient Evaluation/Re-Eval M1 PT/OT-IP Prior Functional Status Start: 05/23/23 10:24 Freq: NEEDED Status: Active Protocol: Document 05/23/23 12:38 MB (Rec: 05/23/23 13:03 MB [id number]) Medical Review Prior Functional Status Medical History Reviewed Yes Diet/Fluid Consistency Regular Communication WNLs Mobility and Gait I Activities of Daily Living and IADL's I Prior Functional Level (Other details) I Social History Household Members spouse Living Arrangements House Number of Floors (Floors) One Floor Number of Stairs To Enter/Railing? A few steps and no rail to enter Home Environment Standard Height Toilet,Walk in Shower,Built-In Shower Seat Home Equipment Four Wheel Walker,Straight Cane Employment Status Retired M2 PT-IP Current Condition Start: 05/23/23 10:24 Freq: NEEDED Status: Active Protocol: Document 05/23/23 12:38 MB (Rec: 05/23/23 13:03 MB [id number]) Physical Therapy Current Condition Current Condition Evaluation Date 05/23/23 Treatment Diagnosis S/p anterior resection for colonic stricture Onset Date 05/22/23 M3 PT-IP Subjective Start: 05/23/23 10:24 Freq: NEEDED Status: Active Protocol: Document 05/23/23 12:38 MB (Rec: 05/23/23 13:03 MB [id number]) Subjective Physical Therapy Visit Type Type Initial Evaluation Visit Start Time 12:38 Visit Stop Time 12:57 Number of ELECTROFORMER Visits 0 Physical Therapy Visit Comments Patient Comments I'm doing well! I was just going to go for a walk. My bowels are moving and I am passing gas. Patient Goals To go home tomorrow Therapy Pain Assessment Pain When Pain Assessed At Rest Pain Present Pain Present Pain Reported Location abdomen Intensity 2 Scale Used Bharat (Faces) M4 PT-IP Mobility and Gait Start: 05/23/23 10:24 Freq: NEEDED Status: Active Protocol: Document 05/23/23 12:38 MB (Rec: 05/23/23 13:03 MB [id number]) PT-Bed Mobility Assessment Rolling Type of Rolling Log Rolling,Roll to Left Level of Assist Independent Supine to Sit Supine to Sit Independent Scooting Scooting to Edge of Bed Independent PT-Transfer Assessment Sit to and From Stand Sit to and from Stand Independent Equipment Transfer Assistive Device Gait Belt Orthotic/Prosthetic Devices or Brace: No Transfers Transfer Destination Chair Transfer Technique Ambulation Transfer Ability Level of Assist Independent Comments Mobility Comments Pt tends to hold her stomach with mobility Gait Assessment Gait Gait Assistance Required: Independent,Standby Assistance Distance (Feet) 100 Able to Maintain Weight Bearing Status Yes During Gait Assistive Devices Assistive Device Gait Belt Orthotic/Prosthetic Devices or Brace: No Comments Gait Comments Pt tends to hold her stomach with gait and she gait trains 100'x2 with SBA and then I Stair Climbing Assessment Evaluation Level of Assist On Stairs Standby Assistance Devices Stair Climbing Assistive Devices None Technique/Endurance Stair Climbing Direction Ascend and Descend Stair Climbing Technique Step Over Step,Step to Step Number of Steps Climbed 3 Query Text: Stair Climbing Set # Repetitions (reps) 1 Comments Stair Climbing Comments There is no rail at home and she is able to ascend with reciprocal gait pattern and no rail and descend steps with step-to pattern and arms out at side to help balance. She requires SBA and will have assist at d/c. PT-Balance Assessment Sitting Balance and Reactions Static Sitting Balance Ability Normal Dynamic Sitting Balance Ability Normal Standing Balance and Reactions Static Standing Balance Ability Normal Dynamic Standing Balance Ability Good M5 PT-IP Objective Assessments Start: 05/23/23 10:24 Freq: NEEDED Status: Active Protocol: Document 05/23/23 12:38 MB (Rec: 05/23/23 13:03 MB [id number]) Orientation Orientation/Cognition Level of Alertness Alert Orientation Name,Age,Birthday,Month,Date, Year,Day of Week,Place, Situation Language Function Ability No Deficits Noted Safety Awareness Understands Safety Issues Memory Description No Deficits Noted Gross Range of Motion Upper Extremity ROM Assessment Within Functional Limits Lower Extremity ROM Assessment Within Functional Limits Strength Upper Extremity Strength Assessment Within Functional Limits Lower Extremity Strength Assessment Within Functional Limits M6 PT-IP Treatment Start: 05/23/23 10:24 Freq: NEEDED Status: Active Protocol: Document 05/23/23 12:38 MB (Rec: 05/23/23 13:03 MB [id number]) Physical Therapy Treatment Education Education Provided Precautions,Weight Bearing Status,Post-Op Packet,Safety M7 PT-IP Assessment and Plan Start: 05/23/23 10:24 Freq: NEEDED Status: Active Protocol: Document 05/23/23 12:38 MB (Rec: 05/23/23 13:03 MB [id number]) PT Summary Assessment and Plan Potential Rehabilitation Potential Good Status of Condition at Evaluation Evolving Summary Progress Towards Goals Safe For Discharge Assessment Summary Pt is a pleasant 72 y/o female who is doing well after anterior resection d/t colonic stricture. She requires SBA to I for mobility including gait and steps. Her and sister are nearby for assessment and will be with her at d/c. She has no futher acute PT needs. Pt states that her breathing exercises are really helping her post-op. Frequency of Treatment Frequency Of Treatment Discharge Precautions Abdominal Surgery Precautions Log Roll,Lifting Restrictions, Gait Belt above Incisional Area Weight Bearing Status Weight Bearing Status Weight Bear as Tolerated Recommendations To Nursing Amount of Assist Needed Standby Assistance Discharge Recommendations PT Discharge Recommendations Home with Assistance Transportation Needs at Discharge Private Vehicle
--- NOTE | 2023-05-23 15:06 | CM.DANOTE ---
Initial DCP Assessment Note Pt is a 72 yo female, resident of [place], now POD#1 from: p Laparoscopic convert to open Low Anterior Colon Resection and Appendectomy by Kailash Robertson MD PCP: Shelton Clark Payer: [facility]/ out of State [facility] Reviewed chart, met w/patient, her spouse and her younger sister, introduced self and role. Patient reports feeling a lot better today and eager to return home upon discharge. Patient and spouse live in [place] in the winter and [place] in the summer. Patient traveled back to [place] specifically to have this surgery at . Patient is indp in all aspects at her baseline and denies need from this CM team currently. No barriers identified at this time to patient's safe discharge home w/family to assist; close outpatient f/u recommended. CM team will plan to follow closely in case any DC needs or concerns arise. ZAK Newman CM Discharge Assessment Start: 05/23/23 15:03 Freq: Status: Active Protocol: Document 05/23/23 15:03 CARLIN (Rec: 05/23/23 15:06 [id number]) Discharge Planning Assessment Assigned [employer] ZAK Engle DPOA/Assigned Designee Name Brian Yarbrough, spouse Contact Information [phone] Advance Directives? Yes Advance Directives on File No History Provided By Patient,Family Member, Significant Other Prior Living Arrangements House Household Members spouse Type of transporation used prior to Drives own vehicle admit Independent with ADL's Yes Is patient alert and oriented? Yes Barriers to Discharge No Comment Home w/supportive family Discharge Plan Home Transportation Arrangement Family Referrals Initiated None needed
[2023-05-23 19:24] LABS: HEMOLYSIS < 15 (0-50); Potassium 3.5 mmol/L (3.4-5.1)
[2023-05-23 19:27] LABS: Magnesium 1.9 mg/dL (1.6-2.3)
[2023-05-23] MEDS: ATORVASTATIN 20 MG TABLET PO (20:16)
[2023-05-24 02:00] VITALS: O2SAT 98
[2023-05-24 05:17] VITALS: BP 146/74; PULSE 86; RESP 15; TEMP 36.3; O2SAT 97
[2023-05-24] MEDS: LEVOTHYROXINE 88 MCG TABLET PO (05:50)
[2023-05-24] MEDS: ACETAMINOPHEN 325 MG TABLET 650 MG PO (05:52)
[2023-05-24 06:00] VITALS: O2SAT 97
[2023-05-24 06:27] LABS: Add Manual Diff / Slide Review NO; Basophils Absolute Auto 0 /uL (0-100); Basophils Percent Auto 0.3 % (0-2); Eosinophils Absolute Auto 100 /uL (0-450); Eosinophils Percent Auto 1.1 % (2-4); Hematocrit 30.7 % (36-46); Hemoglobin 10.7 g/dL (12.0-16.0); Lymphocytes Absolute Auto 1600 /uL (1100-4500); Lymphocytes Percent Auto 19.8 % (25-40); Mean Corpuscular HGB Conc 34.7 % (30-36); Mean Corpuscular Hemoglobin 30.9 PG (26-34); Mean Corpuscular Volume 89.1 fL (80-100); Monocytes Absolute Auto 1000 /uL (0-900); Monocytes Percent Auto 12.4 % (3-14); Neutrophils Absolute Auto 5400 /uL (1500-7000); Neutrophils Percent Auto 66.4 % (50-75); Platelet Count 193 X10^3/uL (150-400); Red Blood Cell Count 3.45 X10^6/uL (4.0-5.2); Red Cell Distribution Width 12.9 % (11.6-14.8); White Blood Cell Count 8.1 X10^3/uL (4.5-11.0)
[2023-05-24 06:32] LABS: Blood Urea Nitrogen 4 mg/dL (7-17); Calcium 8.6 mg/dL (8.4-10.2); Carbon Dioxide 26 mmol/L (22-32); Chloride 105 mmol/L (98-107); Estimated Glomerular Filt Rate > 60 mL/min (>60); Glucose 83 mg/dL (80-110); HEMOLYSIS < 15 (0-50); Potassium 3.5 mmol/L (3.4-5.1); Sodium 137 mmol/L (137-145)
[2023-05-24 07:45] VITALS: O2SAT 97
[2023-05-24] MEDS: DONEPEZIL 5 MG TABLET 10 MG PO (08:54)
[2023-05-24] MEDS: ENOXAPARIN 40 MG/0.4 ML SYRINGE SUBCUT (08:54)
--- NOTE | 2023-05-24 08:54 | P.DS_ITS ---
History of Present Illness History of Present Illness Date Patient Seen: 05/24/23 Time Patient Seen: 08:54 Chief complaint: Lap Sigmoid Colectomy Narrative: 72-year-old woman admitted following elective laparoscopic-assisted low anterior resection for a diverticular stricture. Discharge Providers Provider Date of admission: 05/22/23 07:18 Discharge Date: 05/24/23 Primary care physician: Shelton Clark DO Consults: 05/22/23 13:37 Consult to Occupational Therapy Evaluate & Treat Comment: Physician Instructions: Evaluate and treat Consult to Physical Therapy Evaluate & Treat Comment: Physician Instructions: Evaluate and Treat 05/22/23 14:27 Consult to Dietitian, Adult Routine Comment: Reason For Exam: weight loss Discharge provider: Kailash Robertson MD Summary Hospital Course Discharge Diagnosis: Diverticular stricture Hospital Course: Patient underwent a laparoscopic-assisted low anterior resection and open appendectomy May 22, 2023. Operation was significant for dense intra- abdominal adhesions within the pelvis and the operation was converted to open. She progressed appropriately following surgery. She would return of bowel function minimal abdominal pain. At the time of discharge May 24 she is tolerant of a regular diet, ambulatory, pain is controlled with Tylenol. She is appropriate for discharge home. Exam Vital Signs (past 8 hours): - 05/24/23 02:00 05/24/23 05:17 05/24/23 06:00 Temperature 97.4 F L Pulse Rate 86 Respiratory Rate 15 Blood Pressure 146/74 H Pulse Oximetry 98 97 97 Oxygen Delivery Method Room Air Room Air Oxygen Flow Rate 0 Oxygen Delivery Method Room Air Oxygen Flow Rate 0 Narrative Exam Narrative: General adult woman alert oriented no acute distress Abdomen soft appropriately tender to palpation. Midline dressing is clean dry intact. Objective Labs 05/24/23 05:35 05/24/23 05:35 Labs: Laboratory Results - last 24 hr 05/23/23 05/24/23 18:10 05:35 WBC 8.1 RBC 3.45 L Hgb 10.7 L Hct 30.7 L MCV 89.1 MCH 30.9 MCHC 34.7 RDW 12.9 Plt Count 193 Neut % (Auto) 66.4 Lymph % (Auto) 19.8 L [place] % (Auto) 12.4 Eos % (Auto) 1.1 L Baso % (Auto) 0.3 Neut # (Auto) 5400 Lymph # (Auto) 1600 [place] # (Auto) 1000 H Eos # (Auto) 100 Baso # (Auto) 0 Sodium 137 Potassium 3.5 3.5 Chloride 105 Carbon Dioxide 26 BUN 4 L Creatinine 0.57 Estimated GFR > 60 BUN/Creatinine Ratio 7.0 Glucose 83 Calcium 8.6 Magnesium 1.9 PFSH Medical History (Updated 05/16/23 @ 00:00 by ) Dementia (~2021) HLD (hyperlipidemia) Skin cancer Anxiety Diverticulosis Sinus drainage History of pneumonia Asthma Benign essential HTN Hypothyroidism Surgical History (Updated 05/10/23 @ 08:19 by Josy Patterson RN) Hx of colonoscopy (04/29/23) Social History household members: spouse Smoking Status: Never smoker alcohol intake: current Discharge Plan Discharge Plan Patient Disposition: Home Provider Discharge Comment: -leave abdominal dressing in place until follow up -Do not submerge wounds in water until seen in follow-up. -No lifting >10 lbs x 4 weeks. -Walking only for exercise for 4 weeks. -No driving while taking narcotics. Discharge orders & Medications Prescriptions: New oxycodone 5 mg tablet 5 mg PO Q6H PRN (Reason: pain) Qty: 20 0RF acetaminophen [Tylenol] 325 mg capsule 650 mg PO QID PRN (Reason: pain) Qty: 60 0RF Continued amlodipine 2.5 mg tablet 2.5 mg PO DAILY Qty: 90 3RF levothyroxine 88 mcg tablet 88 mcg PO DAILY Qty: 90 3RF rosuvastatin 10 mg tablet 10 mg PO QPM Qty: 90 3RF albuterol sulfate 90 mcg/actuation Hfa Aerosol Inhaler 2 puff INHALATION Q4-6H PRN (Reason: Shortness Of Breath) donepezil 10 mg Tablet 10 mg PO DAILY ibuprofen [Advil] 200 mg Tablet 400 mg PO DAILY Patient Comments: Additional 200mg in pm Follow up/Referrals: Kailash Robertson MD [Physician] - Diet/Activity/Treatments Diet: Diet as Tolerated Skin/Wound/Dressing Care Report to your healthcare provider any signs of infection, such as:: chills, fever, increased pain and unusual redness Visit Report/Discharge Packet Stand Alone Forms: Patient Portal/API, Stroke Signs & Symptoms Discharge Data Primary Care Provider: Shelton Clark
[2023-05-24] MEDS: AMLODIPINE 5 MG TABLET 2.5 MG PO (08:56)
[2023-05-24] MEDS: IBUPROFEN 600 MG TABLET PO (08:58)
[2023-05-24 09:00] VITALS: BP 139/72; PULSE 79; RESP 18; TEMP 36.7; O2SAT 99
--- NOTE | 2023-05-24 11:09 | DIET.CONS ---
Dietary Consultation Note Admission Date: 05/22/2023 07:18 Assessment: 72F admitted for resection r/t diverticular stricture. RD consulted for weight loss. Grisel reports reduced weight r/t early satiety. States she feels a healthy weight for her is 120-130#, which this RD would agree. Wt hx indicates severe wt loss of 2.6kg (5.4%) over 9 days prior to admission. Also 6.2% loss over one month (severe). Also reports difficulty with unintentional weight loss over the last two years. Nutrition focused physical exam indicates moderate uatsdin and interosseous muscle wasting and boxed shoulders indicating mild wasting. Severely low BMI for age at 17. Reports improved appetite today. Plans for d/c today. Ht: 162.56 cm Wt: 45.541 kg BMI: 17.2 Last BM: 05/24/23 (05/24/23 05:17) MNA: 8 Michael Score: 20 Diet: 05/23/23 Lunch General (Regular) Diet Diet Modifications: Protein supplement with each meal Food Texture: Level 7 - Regular Liquid Consistency: Level 0 - Thin Nutrition Percent Meal Consumed 50% 05/23/23 18:00 Percent Meal Consumed 50% 05/23/23 16:20 Percent Meal Consumed 50% 05/23/23 13:00 Percent Meal Consumed 50% 05/23/23 10:00 Percent Meal Consumed 25% 05/22/23 18:00 Labs: RBC 3.45 X10^6/uL (4.0-5.2) L 05/24/23 05:35 Hgb 10.7 g/dL (12.0-16.0) L 05/24/23 05:35 Hct 30.7 % (36-46) L 05/24/23 05:35 Creatinine 0.57 mg/dL (0.52-1.04) 05/24/23 05:35 Nutrition Diagnosis: Acute severe protein calorie malnutrition r/t early satiety prior to resection aeb pt report, >5% weight loss over one month, physical signs of moderate wasting in temples and interosseous muscle. Interventions: Since she is discharging, we discussed soft proteins for both healing and PCM. Reviewed protein recs and protein sources, ie shakes, whole foods, etc. Sister present and plans to support. EER: 70-80g PRO (1.5-1.8g/kg per PCM) 8193-7114 kcals (38kcal/kg per BMI) Monitoring/Evaluations: consult prn Electronically Signed by: Deb Ramirez 05/24/23 11:09 Clinical Dietitian [address] [address]
--- NOTE | 2023-05-24 14:38 | PC.NURSE ---
Discharge: Pt feels ready to d/c to home. She took a shower prior to leaving. Tolerates diet w/out problems. Voiding w/out problems. Has had several liquid stools. MD Here to see patient and he reviewed d/c instructions with her. Aquacel dressing is intact. Discussed leaving dressing in place until she sees the MD for follow up. Discharge packet given, Questions answered. Pt's spouse/family here. Pt d/c to home via auto w/spouse.
== END 2023-05-24 14:05 | disposition home or self-care (01) | DRG 332 ==
PROVIDERS: Admitting Provider Surgery; PCP Family Medicine; Referring Provider Surgery; Visit Provider Surgery
PROC: 0DTE0ZZ Resection of Large Intestine, Open Approach (ICD-10-PCS; principal; 2023-05-22 09:15)
DX: K56.699 Other intestinal obstruction unspecified as to partial versus complete obstruction (principal); E43 Unspecified severe protein-calorie malnutrition; Z68.1 Body mass index [BMI] 19.9 or less, adult; E03.9 Hypothyroidism, unspecified; I10 Essential (primary) hypertension; E78.5 Hyperlipidemia, unspecified
CPT/HCPCS: 36415; 44140; 80048; 83735; 84132; 85025; 97161; C9290; J1100; J1170; J1650; J1956; J2250; J2405; J2704; J3010; J3490

== ENCOUNTER → 2023-05-27 15:05 | Outpatient (CLI) | payer MEDICARE, BC, SELFPAY ==
[2023-05-22 14:22] VITALS: BMI 17.2
[2023-05-27 15:32] LABS: Add Manual Diff / Slide Review NO; Basophils Absolute Auto 100 /uL (0-100); Eosinophils Absolute Auto 500 /uL (0-450); Eosinophils Percent Auto 5.2 % (2-4); Hematocrit 33.9 % (36-46); Hemoglobin 11.8 g/dL (12.0-16.0); Lymphocytes Absolute Auto 2800 /uL (1100-4500); Lymphocytes Percent Auto 31.9 % (25-40); Mean Corpuscular HGB Conc 34.7 % (30-36); Mean Corpuscular Volume 89.4 fL (80-100); Monocytes Absolute Auto 900 /uL (0-900); Monocytes Percent Auto 9.9 % (3-14); Neutrophils Absolute Auto 4600 /uL (1500-7000); Platelet Count 359 X10^3/uL (150-400); White Blood Cell Count 8.9 X10^3/uL (4.5-11.0)
== END ==
PROVIDERS: PCP Family Medicine; Referring Provider Surgery; Visit Provider Surgery
DX: K56.699 Other intestinal obstruction unspecified as to partial versus complete obstruction (principal)
CPT/HCPCS: 36415; 85025

== ENCOUNTER → 2023-11-18 11:42 | Outpatient (CLI) | payer MEDICARE, BC, SELFPAY ==
[2023-05-22 14:22] VITALS: BMI 17.2
[2023-11-18 12:45] LABS: Alanine Aminotransferase 28 IU/L (<35); Albumin 4.5 g/dL (3.5-5.0); Albumin Globulin Ratio 1.9 (1.0-2.8); Alkaline Phosphatase 59 U/L (38-126); Aspartate Aminotransferase 39 IU/L (14-36); BUN Creatinine Ratio 23.2 (6-22); Bilirubin Total 0.8 mg/dL (0.2-1.3); Blood Urea Nitrogen 19 mg/dL (7-17); Calcium 9.9 mg/dL (8.4-10.2); Carbon Dioxide 29 mmol/L (22-32); Chloride 103 mmol/L (98-107); Cholesterol 208 mg/dL (140-199); Estimated Glomerular Filt Rate > 60 mL/min (>60); Globulin 2.4 g/dL (1.7-4.1); Glucose 91 mg/dL (80-110); HEMOLYSIS < 15 (0-50); Potassium 4.5 mmol/L (3.4-5.1); Sodium 137 mmol/L (137-145); Total Protein 6.9 g/dL (6.3-8.2); Triglycerides 66 mg/dL (35-150)
[2023-11-18 12:56] LABS: HDL Cholesterol 138 mg/dL (40-60); LDL Cholesterol Calculated 57 mg/dL (<100)
[2023-11-18 13:06] LABS: TSH w/ Reflex to FT4 0.08 uIU/mL (0.47-4.68)
[2023-11-18 13:30] LABS: Free T4, Direct Thyroxine 0.79 ng/dL (0.78-2.19)
[2023-11-18 16:01] LABS: Hep C Virus Ab w/Reflex Quant NEGATIVE s/c (NEGATIVE)
== END ==
PROVIDERS: PCP Family Medicine; Referring Provider Family Medicine; Visit Provider Family Medicine
DX: Z00.00 Encounter for general adult medical examination without abnormal findings (principal); E03.9 Hypothyroidism, unspecified; I10 Essential (primary) hypertension; F03.90 Unspecified dementia, unspecified severity, without behavioral disturbance, psychotic disturbance, mood disturbance, and anxiety; E78.5 Hyperlipidemia, unspecified
CPT/HCPCS: 36415; 80053; 80061; 84439; 84443; 86803

== ENCOUNTER → 2023-12-31 12:00 | Outpatient (CLI) | payer MEDICARE, BC, SELFPAY ==
[2023-12-25 12:02] VITALS: BMI 17.2
--- NOTE | 2023-12-31 12:01 | DI.MG.S_ITS ---
BILATERAL DIGITAL SCREENING MAMMOGRAM 3D/2D WITH CAD: 12/31/2023 CLINICAL: Routine screening. Comparison is made to exams dated: 12/25/2022 mammogram - [facility], 07/20/2020 mammogram, and 04/27/2022 mammogram - outside facility. The breasts are extremely dense, which lowers the sensitivity of mammography (category d />75% glandular tissue). Current study was also evaluated with a Computer Aided Detection (CAD) system. There are benign diffuse calcifications in both breasts. No significant masses, calcifications, or other findings are seen in either breast. There has been no significant interval change. IMPRESSION: BENIGN There is no mammographic evidence of malignancy. A 1 year screening mammogram is recommended. Based on the Tyrer Cuzick model (a risk assessment model) the patient's lifetime risk is 10.2% and her 10 year risk is 7.7%. According to the ACR, ACS, and NCCN guidelines, an annual breast MRI exam along with mammogram is recommended if the patient's lifetime risk is 20% or greater. This exam was interpreted at Station ID: [id number]. NOTE: For mammograms, a report in lay terms will be sent to the patient. Approximately 15% of breast malignancies will not be visualized mammographically. In the management of a palpable breast mass, a negative mammogram must not discourage biopsy of a clinically suspicious lesion. Electronically Signed By: Wisam alcantar/oralia:12/31/2023 15:43:52 letter sent: Normal Exam ACR BI-RADS Category 2: Benign
== END ==
PROVIDERS: PCP Family Medicine; Referring Provider Family Medicine; Visit Provider Family Medicine
DX: Z12.31 Encounter for screening mammogram for malignant neoplasm of breast (principal); R92.343 Mammographic extreme density, bilateral breasts
CPT/HCPCS: 77063; 77067

== ENCOUNTER 2024-01-14 09:51 | Day surgery (SDC) | payer MEDICARE, BC, SELFPAY ==
[2023-12-25 12:02] VITALS: BMI 17.2
[2024-01-14] MEDS: LACTATED RINGERS 1,000 ML 42 ML IV (10:19)
[2024-01-14 10:29] VITALS: BP 148/78; PULSE 80; RESP 12; TEMP 36.2; O2SAT 99
--- NOTE | 2024-01-14 10:44 | PM.PREOP ---
Pre-operative Note Interval Note History & Physical reviewed/Exam performed by Physician: Yes Changes to H&P: No
[2024-01-14 11:00] VITALS: BP 128/67; PULSE 66; TEMP 36.3; O2SAT 78
[2024-01-14 11:05] VITALS: BP 117/65; PULSE 62; RESP 14; O2SAT 97
[2024-01-14 11:07] VITALS: BP 114/61; PULSE 62; RESP 14; TEMP 36.6; O2SAT 97
--- NOTE | 2024-01-14 11:10 | PM.OP.EGD ---
Operative Date/Time/Diagnoses Date of procedure: 01/14/24 Time of procedure: 11:11 Pre-op diagnosis: Early satiety Procedure & Clinicians Study performed: Diagnostic esophagogastroduodenoscopy Indications: Early satiety Surgeon: Kailash Robertson Procedure Notes Procedure in detail: The history and physical was performed/updated and the patient is ASA class is 2. The procedure was discussed in detail with the patient. Potential risks complications including infection, bleeding, missed diagnosis, perforation, need for surgery, and were explained. Their questions were answered and informed consent was obtained. Patient placed in left lateral decubitus position. Time out was performed. Procedural sedation was administered by Anesthesia. A bite block was placed. the scope was inserted into the mouth and advanced through the esophagus and into the stomach. The pylorus was intubated and the duodenum was examined to the 2nd portion. The scope was then withdrawn into the stomach and was retroflexed. The stomach was decompressed and scope was withdrawn slowly through the esophagus. FINDINGS -unremarkable upper endoscopy. No hiatal hernia, gastritis, esophagitis mass or stricture. The patient tolerated the procedure well and will be discharged when they meet criteria. Specimen(s): none sent Impression: Normal upper endoscopy Post-procedure Plan for aftercare: Surgical clinical contact you for scheduling of sigmoidoscopy Disposition: same day surgery
== END 2024-01-14 11:30 | disposition home or self-care (01) ==
PROVIDERS: PCP Family Medicine; Referring Provider Surgery; Visit Provider Surgery
PROC: 0DJ08ZZ Inspection of Upper Intestinal Tract, Via Natural or Artificial Opening Endoscopic (ICD-10-PCS; CPT 43235; principal; 2024-01-14 11:15)
DX: R68.81 Early satiety (principal)
CPT/HCPCS: 43235; J2704

== ENCOUNTER 2024-01-17 09:05 | Day surgery (SDC) | payer MEDICARE, BC, SELFPAY ==
[2023-12-25 12:02] VITALS: BMI 17.2
--- NOTE | 2024-01-17 09:47 | P.HP_ITS ---
History of Present Illness History of Present Illness Date Patient Seen: 01/17/24 Time Patient Seen: 09:47 Chief complaint: Colonoscopy Narrative: 73-year-old woman here for sigmoidoscopy with possible endoscopic dilation. She has a history of a sigmoid colectomy for diverticular stricture within the past 1 year. She describes obstructive symptoms numerous bowel movements as well as the feeling of incomplete evacuation. [facility] Medical History Depression, unspecified Encounter for subsequent annual wellness visit (AWV) in Medicare patient Dementia (~2021) HLD (hyperlipidemia) Skin cancer Anxiety Diverticulosis Sinus drainage History of pneumonia Asthma Benign essential HTN Hypothyroidism Surgical History Hx of colonoscopy (04/29/23) Social History marital status: household members: spouse lives independently: Yes occupational status: previously employed Smoking Status: Never smoker alcohol intake: current substance use type: marijuana Meds Home Medications and Allergies Home Medications Medication Instructions Recorded Confirmed Type albuterol sulfate 90 mcg/actuation 2 puff inhalation Q4-6H PRN 05/10/23 01/14/24 History aerosol inhaler Shortness Of Breath ibuprofen 200 mg tablet (Advil) 400 mg PO DAILY 05/10/23 01/14/24 History amlodipine 2.5 mg tablet 2.5 mg PO DAILY #90 tabs 11/18/23 01/14/24 Rx rosuvastatin 10 mg tablet 10 mg PO QPM #90 tabs 11/18/23 01/14/24 Rx donepezil 10 mg tablet 10 mg PO DAILY #90 tabs 11/19/23 01/14/24 Rx memantine 5 mg tablet 5 mg PO DAILY #90 tabs 11/19/23 01/14/24 Rx fluoxetine 20 mg capsule (Prozac) 20 mg PO DAILY #90 caps 12/23/23 01/14/24 Rx Allergies Allergy/AdvReac Type Severity Reaction Status Date / Time Penicillins Allergy Unknown Facial Verified 01/17/24 09:31 swelling, itching Exam Narrative Exam Narrative: General adult woman alert oriented no acute distress Chest nonlabored respiration Extremities warm well perfused Assessment & Plan Assessment and plan (1) Altered bowel function: Status: Acute Assessment & Plan narrative: 73-year-old woman with altered bowel function and concern for anastomotic colonic stricture here for diagnostic sigmoidoscopy with possible endoscopic dilation. Technical details were discussed. Risks, benefits, alternatives explained. Risks including but not limited to myocardial infarction, aspiration, bleeding, pain, missed lesion, incomplete examination, need for further radiographic studies, intestinal injury, and need for major abdominal surgery were discussed. All questions were answered to their satisfaction, and they are in agreement with this plan. Time-Based Coding :: [TOTAL MINUTES] spent with patient and on the chart (including review of chart, obtaining history, exam, reviewing outside data, placing orders, documenting exam and treatment plan, and counseling patient) on [DATE].
[2024-01-17 10:05] VITALS: BP 111/74; PULSE 74; RESP 18; TEMP 37.2; O2SAT 100
[2024-01-17 11:39] VITALS: BP 82/57; PULSE 70; RESP 16; TEMP 36.6; O2SAT 98
--- NOTE | 2024-01-17 11:42 | PM.OP.COLON ---
Operative Date/Time/Diagnoses Date of procedure: 01/17/24 Time of procedure: 11:42 Pre-op diagnosis: Diarrhea Post-op diagnosis: other (Anastomotic stricture) Procedure & Clinicians Study performed: Sigmoidoscopy and endoscopic dilation of anastomotic stricture Same procedure as scheduled: Yes Indications: 73-year-old woman who had a sigmoid colectomy for diverticular stricture within the past year who has subsequently developed obstructive symptoms here for sigmoidoscopy and possible anastomotic dilation. Surgeon: Kailash Robertson Procedure Notes Procedure in detail: The history and physical was performed/updated and the patient is ASA class is 2. The procedure was discussed in detail with the patient. Potential risks complications including infection, bleeding, missed diagnosis, perforation, need for surgery, and were explained. Their questions were answered and informed consent was obtained. Patient was brought to the procedure room and placed standard monitoring equipment. The patient's vital signs were monitored continuously throughout the entire procedure. Prior to starting time-out was performed. The patient was placed in the left lateral recumbent position. Procedural sedation was administered by anesthesia. Examination began with a thorough inspection of the perianal area there was no evidence of fissures, fistulae, external hemorrhoids or cutaneous malignancy. The colonoscopy scope was then placed into the anal canal and was advanced forward. At the rectal colonic anastomosis it was noted to be narrowed however we could still pass the colonoscope through it. The examined portion of the proximal colon to the hepatic flexure was normal. The scope was then withdrawn and we proceeded with an endoscopic dilation of the anastomosis. The anastomosis was gradually dilated using the 20 mm balloon dilator. Following the completion of the procedure the scope easily passed through the anastomosis. Specimen(s): none sent Impression: Anastomotic narrowing Post-procedure Disposition: same day surgery
[2024-01-17 11:44] VITALS: BP 97/68; PULSE 74; RESP 16; TEMP 36.6; O2SAT 98
[2024-01-17 11:48] VITALS: BP 97/68; PULSE 68; RESP 16; O2SAT 100
[2024-01-17 12:00] VITALS: BP 118/68; PULSE 76; RESP 16; TEMP 36.9; O2SAT 98
== END 2024-01-17 12:02 | disposition home or self-care (01) ==
PROVIDERS: PCP Family Medicine; Referring Provider Surgery; Visit Provider Surgery
PROC: 0DJD8ZZ Inspection of Lower Intestinal Tract, Via Natural or Artificial Opening Endoscopic (ICD-10-PCS; CPT 45378; principal; 2024-01-17 10:30)
DX: R19.7 Diarrhea, unspecified (principal); K62.4 Stenosis of anus and rectum
CPT/HCPCS: 45340; J2704

== ENCOUNTER → 2024-11-18 11:33 | Outpatient (CLI) | payer MEDICARE, BC, SELFPAY ==
[2023-12-25 12:02] VITALS: BMI 17.2
[2024-11-18 13:01] LABS: Hematocrit 36.8 % (36-46); Hemoglobin 12.5 g/dL (12.0-16.0); Mean Corpuscular HGB Conc 34.0 % (30-36); Mean Corpuscular Hemoglobin 31.8 PG (26-34); Mean Corpuscular Volume 93.7 fL (80-100); Platelet Count 217 X10^3/uL (150-400)
[2024-11-18 13:18] LABS: Alanine Aminotransferase 17 IU/L (<35); Albumin 4.0 g/dL (3.5-5.0); Albumin Globulin Ratio 1.7 (1.0-2.8); Alkaline Phosphatase 69 U/L (38-126); Blood Urea Nitrogen 17 mg/dL (7-17); Calcium 9.2 mg/dL (8.4-10.2); Carbon Dioxide 24 mmol/L (22-32); Chloride 104 mmol/L (98-107); Cholesterol 278 mg/dL (140-199); Estimated Glomerular Filt Rate > 60 mL/min (>60); Globulin 2.3 g/dL (1.7-4.1); Glucose 120 mg/dL (70-99); HEMOLYSIS < 15 (0-50); Potassium 4.0 mmol/L (3.4-5.1); Sodium 135 mmol/L (137-145); Total Protein 6.3 g/dL (6.3-8.2); Triglycerides 71 mg/dL (35-150)
[2024-11-18 13:25] LABS: HDL Cholesterol 129 mg/dL (40-60)
[2024-11-18 13:49] LABS: TSH w/ Reflex to FT4 0.44 uIU/mL (0.47-4.68)
[2024-11-18 14:17] LABS: Free T4, Direct Thyroxine 2.00 ng/dL (0.78-2.19)
== END ==
PROVIDERS: PCP Family Medicine; Referring Provider Family Medicine; Visit Provider Family Medicine
DX: Z00.00 Encounter for general adult medical examination without abnormal findings (principal); F03.A0 Unspecified dementia, mild, without behavioral disturbance, psychotic disturbance, mood disturbance, and anxiety; E03.9 Hypothyroidism, unspecified; I10 Essential (primary) hypertension; E78.5 Hyperlipidemia, unspecified
CPT/HCPCS: 36415; 80053; 80061; 84439; 84443; 85027